=== PATIENT | female | born 1970 | race Caucasian/White ===

== ENCOUNTER 2021-10-19 08:51 | Emergency (ER) | payer OTHER ==
[~2021-10-19] VITALS: Ht 172.7 cm; Wt 68.1 kg
[2021-10-19] MEDS ORDERED: AMOXICILLIN/K CLAV 875/125MG TABLET. PO ONE (09:30)
[2021-10-19] MEDS ORDERED: ONDANSETRON ODT 4 MG TAB.RAPDIS. ONE (09:50)
[2021-10-19] MEDS ORDERED: ONDANSETRON ODT 4 MG TAB.RAPDIS. PO ONE (10:00)
[2021-10-19] MEDS ORDERED: NAPR500T8 PO (10:02)
[2021-10-19] MEDS ORDERED: AMOX1TAB61 PO (10:02)
--- NOTE | 2021-10-19 10:03 | PHYS DOC ---
Past Medical History Past Medical History: No Pertinent History (JEFRY MEDINA) Past Surgical History: No Surgical History (JEFRY MEDINA) Drug Use: None (ANKITA COOLEY DO) General Adult EDM: Chief Complaint: ANIMAL BITE HPI: HPI: Patient is a 51 year old female who presents with dog bite just prior to arri christie. Patient is from out of town, and is staying with a friend. She states she is afraid of dogs, and has avoided interaction with her friends dog at home. Today, however she attempted to interact with him, and became scared again. As she was walking away, the dog bit the inside of her thigh. Patient's tetanus vaccination is up-to-date. The dog's vaccinations are also up-to-date. Incident was [place] to the [place]. Patient has no other complaints at this time. (JEFRY MEDINA) Review of Systems: Review of Systems: ROS negative or noncontributory except as mentioned in HPI. (JEFRY MEDINA) Heart Score: C/O Chest Pain: No (JEFRY MEDINA) Current Medications: Current Medications Medications (Trade) Dose Ordered Sig/Hemant Start Time Stop Time Status Last Admin Dose Admin Amoxicillin/ Clavulanate Potassium (Augmentin 875/ 125mg) 1 tab 1X ONCE 10/19/21 09:30 10/19/21 09:34 DC 10/19/21 09:36 1 TAB Ondansetron HCl (Zofran Odt) 4 mg STK-MED ONCE 10/19/21 09:50 10/19/21 09:50 DC (JEFRY MEDINA) Allergies: Allergies: Allergies Coded Allergies Type Severity Reaction Last Updated Verified No Known Drug Allergies 10/19/21 No (JEFRY MEDINA) Physical Exam: PE: Constitutional: Well developed, well nourished, no acute distress, non-toxic appearance. HENT: Normocephalic, atraumatic, bilateral external ears normal, nose normal. Eyes: EOMI, conjunctiva normal, no discharge. Neck: Normal range of motion, no stridor. Skin: Right inner thigh has a 3 cm x 1.5 cm open laceration with abrasion extending distally, hemostasis achieved at time of exam. Skin otherwise warm, dry, no erythema, no rash. Extremities: No cyanosis, no clubbing, ROM intact, no edema. Neurologic: Alert and oriented x4, normal motor function, normal sensory function, no focal deficits noted. (JEFRY MEDINA) Current Patient Data: Vital Signs: Vital Signs Date Time Temp Pulse Resp B/P (MAP) Pulse Ox O2 Delivery O2 Flow Rate FiO2 10/19/21 10:15 78 18 119/78 (92) 100 Room Air 10/19/21 09:00 98.1 91 16 124/80 (95) 94 98.1 (JEFRY MEDINA) Course & Med Decision Making: Course & Med Decision Making Pertinent Labs and Imaging studies reviewed. (See chart for details) Patient is a 51-year-old otherwise healthy female who presents with a dog bite. Because the wound is gaping, it was loosely approximated with 2 sutures. Patient was provided with p.o. antibiotics. She was given the first dose here in the department, but vomited during suture placement. Rather than readminister here in the department, I elected to allow her to fill the prescription and start new when she picks it up. Patient questions were answered. She is advised to follow-up with her primary care doctor for wound check at her earliest availability. Return precautions were provided. Patient understands and is agreeable to discharge plan. (JEFRY MEDINA) Dragon Disclaimer: Dragon Disclaimer: This electronic medical record was generated, in whole or in part, using a voice recognition dictation system. (JEFRY MEDINA) Laceration Repair Lac Repair Indication: Right inner thigh laceration Procedure: The patient was placed in the appropriate position and anesthesia around the laceration was 1% lidocaine with epinephrine. The area was then thoroughly irrigated with sterile saline and cleansed with Betadine solution. The laceration was loosely approximated with 2 simple interrupted 4-0 nylon sutures. The wound area was then dressed with nonadhesive gauze dressing. Total repaired wound length: 3 cm. Other Items: The patient tolerated the procedure fairly well, excluding nausea. Complications: Patient became nauseated and vomited x1 after administration of lidocaine with epinephrine. (JEFRY MEDINA) Departure Departure Impression: Primary Impression: Dog bite of right thigh without complication Qualified Codes: S71.151A - Open bite, right thigh, initial encounter; W54.0XXA - Bitten by dog, initial encounter Additional Impression: Drug-induced nausea and vomiting Disposition: 01 HOME / SELF CARE / HOMELESS Condition: IMPROVED Referrals: NO PCP (PCP) Patient Instructions: Animal Bite, [id number], Wound Care, [id number] Additional Instructions: Non-adhesive gauze, silk tape for redressing wound. May use a large band-aid when wound begins to close. Please see your PCP for a wound check as soon as you are able. The sutures may be removed in 10 days. EMERGENCY DEPARTMENT GENERAL DISCHARGE INSTRUCTIONS Thank you for coming to [facility] Emergency Department (ED) today and trusting us with you care. We trust that you had a positive experi ence in our Emergency Department. If you wish to speak to the department management, you may call the director at . YOUR FOLLOW UP INSTRUCTIONS ARE FOLLOWS: 1. Follow up with your primary care doctor. If you do not have a primary doctor , please ask for a resource list of physicians or clinics that may be able to assist you with follow up care. 2. The emergency provider has interpreted your imaging studies, if any were ordered. The radiology operations support specialist also reviewed them. If there is a change in the findings, you will be notified in 48 hours when at all possible. 3. If a lab test or culture has been done, your results will be reviewed and you will be notified if you need a change in treatment. 4. Follow instructions verbalized to you and refer to the printouts if needed. ADDITIONAL INSTRUCTIONS AND INFORMATION: 1. Your care today has been supervised by a physician who is specially trained in emergency care. Many problems require more than one evaluation for a complete diagnosis and treatment. We recommend that you schedule your follow up appointment as recommended to ensure complete treatment of you illness or injury. If you are unable to obtain follow up care and continue to have a problem, or if your condition worsens, we recommend that you return to the ED. 2. We are not able to safely determine your condition over the phone nor are we able to give sound medical advice over the phone. For these safety reasons, if you call for medical advice we will ask you to come to the ED for further evaluation. 3. If you have any questions regarding these discharge instructions please call the ED at . SAFETY INFORMATION: In the interest of safety, wellness, and injury prevention; we encourage you to wear your seat belt, if you smoke; quite smoking, and we encourage family to use a protective helmet for bicycling and other sporting events that present an increased risk for head injury. IF YOUR SYMPTOMS WORSEN OR NEW SYMPTOMS DEVELOP, OR YOU HAVE CONCERNS ABOUT YOUR CONDITION; OR IF YOUR CONDITION WORSENS WHILE YOU ARE WAITING FOR YOUR FOLLOW UP APPOINTMENT; EITHER CONTACT YOUR PRIMARY CARE DOCTOR, THE PHYSICIAN WHOSE NAME AND NUMBER YOU WERE GIVEN, OR RETURN TO THE ED IMMEDIATELY. Scripts Naproxen (NAPROXEN) 500 Mg Tablet.dr 1 TAB PO BID, #10 TAB 0 Refills Prov: JEFRY MEDINA 10/19/21 Amoxicillin/Potassium Clav (AUGMENTIN 875-125 TABLET) 1 Each Tablet 1 TAB PO BID for 10 Days, #20 TAB 0 Refills Prov: JEFRY MEDINA 10/19/21 Attending Signature Attending Signature I have reviewed the PA/MATERIAL EXPEDITER's note and plan of care. I was available for consultation as needed during the patient's visit in the emergency department. I agree with the clinical impression, plan, and disposition. (ANKITA COOLEY DO) JEFRY MEDINA Oct 19, 2021 10:02 ANKITA COOLEY DO October 23, 2021 23:30
[2021-10-19 10:15] VITALS: BP 119/78
== END 2021-10-19 10:19 | disposition home or self-care (01) ==
LOC: ER 08:51
DX: S71.151A Open bite, right thigh, initial encounter (principal); W54.0XXA Bitten by dog, initial encounter; Y93.01 Activity, walking, marching and hiking; Y92.89 Other specified places as the place of occurrence of the external cause; Y99.8 Other external cause status
CPT/HCPCS: 12002; 99283